=== PATIENT | female | born 1970 | race Caucasian/White ===

== ENCOUNTER 2019-06-03 15:20 | Emergency (ER) | payer MEDICAID ==
--- NOTE | 2019-06-03 15:30 | Emergency Department Record ---
History of Present Illness - General Chief Complaint: Neck Injury/Pain Stated Complaint: LT NECK/SHOULDER PAIN Time Seen by Provider: 06/03/19 15:26 Source: Patient Mode of Arrival: Ambulatory Limitations: No limitations - History of Present Illness Initial Comments: 48 yo female presents with neck and shoulder pain on the left. She woke up with the pain on Sunday. The pain seems to occur with certain movements or positions. The pain is over the top of the left shoulder and down the upper arm. Abduction seems to be the most uncomfortable movement. No weakness. No swelling. No rash. No fever. No prior shoulder surgery. No bony pain in the neck. No grinding or popping sensation. No escrow secretary weakness. She is right handed. MD Complaint: Neck pain, Other (L shoulder) -: Days(s) Place: Home Radiation: Left upper extremity Severity: Moderate Quality: Aching Consistency: Constant Improves With: Remaining still Worsens With: Movement of extremity Context: Other (Awoke with the pain) Associated Symptoms: Other Treatments Prior to Arrival: Naproxen - Related Data Previous Rx's Medication Instructions Recorded Methylprednisolone [Medrol Dose 4 mg PO DAILY #1 tab.ds.pk 06/03/19 Pack] Allergies Allergy/AdvReac Type Severity Reaction Status Date / Time No Known Drug Allergies Allergy Verified 06/03/19 15:29 Review of Systems Constitutional: Denies: Chills, Fever, Malaise, Weakness Eyes: Denies: Eye discharge ENT: Denies: Congestion, Ear pain, Epistaxis, Throat pain Respiratory: Denies: Cough, Dyspnea, Stridor Cardiovascular: Denies: Chest pain, Edema, Palpitations, Syncope Endocrine: Denies: Fatigue Gastrointestinal: Denies: Abdominal pain, Diarrhea, Nausea, Vomiting Genitourinary: Denies: Dysuria, Hematuria, Urgency Musculoskeletal: Reports: Arthralgia, Myalgia. Denies: Back pain, Joint swelling, Neck pain Skin: Denies: Bruising, Change in color, Rash Neurological: Denies: Abnormal gait, Headache, Numbness, Paresthesias, Tingling, Tremors, Weakness Psychiatric: Denies: Anxiety Hematological/Lymphatic: Denies: Easy bleeding, Easy bruising Physical Exam - General General Appearance: Alert, Oriented x3, Cooperative, No acute distress Limitations: No limitations - Head Head exam: Atraumatic, Normal inspection - Eye Eye exam: Normal appearance. negative: Conjunctival injection - ENT ENT exam: Normal exam, Mucous membranes moist Ear exam: Normal external inspection Nasal Exam: Normal inspection Mouth exam: Normal external inspection - Neck Neck exam: Normal inspection, Full ROM. negative: Lymphadenopathy, Meningismus, Tenderness, Thyromegaly - Respiratory Respiratory exam: Normal lung sounds bilaterally. negative: Respiratory distress - Cardiovascular Cardiovascular Exam: Regular rate, Normal rhythm, Normal heart sounds Peripheral Pulses: 2+: Radial (R), Radial (L) - Extremities Extremities exam: Normal inspection. negative: Calf tenderness, Pedal edema, Tenderness Image of Full Body: 1 - tender anterior superior shoulder, no warmth, redness or swelling. Pain with abduction. No pain with internal and external rotation, no biceps tenderness. Distal R, U, and M nerve motor function is intact. - Back Back exam: Reports: Full ROM. Denies: CVA tenderness (R), CVA tenderness (L), Muscle spasm, Paraspinal tenderness, Rash noted, Tenderness, Vertebral ten derness - Neurological Neurological exam: Alert, Normal gait, Oriented X3. negative: Altered, Motor sensory deficit - Psychiatric Psychiatric exam: Normal affect, Normal mood. negative: Agitated, Anxious - Skin Skin exam: Dry, Intact, Normal color, Warm Course - Reevaluation(s) Reevaluation #1: 06/03/19 16:21 The XR was reviewed No acute process The patient examination is consistent with possible tendonitis We discussed home treatment with supportive care and follow up I recommend MRI if not improving to evaluate the soft tissues, tendons Disposition Disposition: Discharge Clinical Impression: Left shoulder strain Qualifiers: Encounter type: initial encounter Qualified Code(s): S46.912A - Strain of unspecified muscle, fascia and tendon at shoulder and upper arm level, left arm, initial encounter Disposition: Home, Self-Care Condition: (1) Good Instructions: Rotator Cuff Tendinitis (ED) Additional Instructions: Call your doctor for the next available follow up appointment Return to the ER for a recheck immediately if worse, any new concerns or questions Take the prescriptions provided as directed Ice the shoulder at night after work If the pain continues you may need further work up with MRI or orthopedic referral Prescriptions: Methylprednisolone [Medrol Dose Pack] 4 mg PO DAILY #1 tab.ds.pk Forms: Patient Portal Access Time of Disposition: 16:20 Quality - Quality Measures Quality Measures: N/A - Blood Pressure Screening Does Patient Have Any of the Following: No Blood Pressure Classification: Pre-Hypertensive BP Reading Systolic Measurement: 134 Diastolic Measurement: 70 Screening for High Blood Pressure: < Pre-Hypertensive BP, F/U Documented > [[id number]] Pre-Hypertensive Follow-up Interventions: Referral to alternative/primary care provider.
--- NOTE | 2019-06-03 16:23 | RADIOLOGY REPORT ---
EXAMINATION: Left Shoulder, Complete Minimum Two Views EXAM DATE: 06/03/2019 3:59 PM TECHNIQUE: 3 view study of the left shoulder obtained. INDICATION: left shoulder pain with lifting arm. COMPARISON: None ENCOUNTER: Initial FINDINGS: The alignment at the left glenohumeral joint is normal and no acute fracture is seen. There is early degenerative change of the acromioclavicular joint with small inferior spur formation which might pre dispose to impingement. No specific soft tissue abnormality is seen. The adjacent ribs appear intact. IMPRESSION: Early degenerative features as above without acute bone/soft tissue abnormality. Dictated by: Tom Joseph MD on 06/03/2019 4:19 PM. .
== END 2019-06-03 16:36 | disposition home or self-care (01) ==
LOC: ER 15:20
DX: S46.912A Strain of unspecified muscle, fascia and tendon at shoulder and upper arm level, left arm, initial encounter (principal); M54.2 Cervicalgia; X58.XXXA Exposure to other specified factors, initial encounter; Y92.009 Unspecified place in unspecified non-institutional (private) residence as the place of occurrence of the external cause
CPT/HCPCS: 99283